=== PATIENT | male | born 1930 | race Caucasian/White ===

== ENCOUNTER 2016-05-24 19:06 | Emergency (ER) | payer OTHER ==
[~2016-05-24] VITALS: Ht 170.2 cm; Wt 76.5 kg
[2016-05-24 21:56] LABS: ADD MIUA? YES; BILIRUBIN NEGATIVE; BLOOD MODERATE; COLOR YELLOW ((YELLOW)); GLUCOSE (STRIP) NEGATIVE; KETONES NEGATIVE; LEUKOCYTES LARGE; NITRITE NEGATIVE; PROTEIN (STRIP) 30; SPECIFIC GRAVITY 1.017 (1.000-1.030)
[2016-05-24 22:13] LABS: BACTERIA 1+ /HPF; EPITHELIAL CELLS RARE /HPF; MUCUS NONE SEEN /LPF; RED BLOOD CELLS 20-30 /HPF (0-5); UCUL ADDED? NO; WHITE BLOOD CELLS 30-40 /HPF (0-5)
[2016-05-24 22:17] VITALS: BP 192/105
== END 2016-05-24 22:18 ==
LOC: EME → EDBD 19:06 → EME 19:06 → EDSEX 19:06 → EME 22:18
PROVIDERS: Emergency Medicine
PROC: 0HQ0XZZ Repair Scalp Skin, External Approach (ICD-10-PCS; principal; 2016-05-24)
DX: S09.90XA Unspecified injury of head, initial encounter (principal); S01.01XA Laceration without foreign body of scalp, initial encounter; W01.10XA Fall on same level from slipping, tripping and stumbling with subsequent striking against unspecified object, initial encounter; Y92.121 Bathroom in nursing home as the place of occurrence of the external cause; J44.9 Chronic obstructive pulmonary disease, unspecified; I10 Essential (primary) hypertension; F03.90 Unspecified dementia, unspecified severity, without behavioral disturbance, psychotic disturbance, mood disturbance, and anxiety; Z87.891 Personal history of nicotine dependence
CPT/HCPCS: 70450; 81003; 99281; 99285

== ENCOUNTER 2016-08-24 12:12 | Inpatient (IN) | payer OTHER ==
[2016-08-24] VITALS (11 sets, daily range): BP systolic 76–120; BP diastolic 48–78
[~2016-08-24] VITALS: Ht 177.8 cm; Wt 79.2 kg
[2016-08-24 14:10] LABS: EOSINOPHIL (%) 0 % (0-5); HEMATOCRIT 38.3 % (38.0-50.0); IMMATURE GRANULOCYTE COUNT 0.3 K/uL; INSTRUMENT ABS NEUTROPHIL CT 20.7 K/uL; LYMPHOCYTE COUNT 2.1 K/uL (1.0-2.8); MCH 29.4 PG (29.0-34.0); MCHC 30.8 G/DL (30.0-36.0); MCV 95.3 FL (86-99); MEAN PLAT.VOLUME 14.7 uM^3 (9.0-12.4); MONOCYTE (%) 5.3 % (3-12); MONOCYTE COUNT 1.3 K/uL (0-0.8); NEUTROPHIL COUNT 20.7 K/uL (1.8-6.4); NRBC (%) 1.2 /100 WBC (0-0); PLATELET COUNT 111 K/uL (156-360); RBC DIS.WIDTH-CV 16.2 % (11.8-14.6); RBC DIS.WIDTH-SD 56.7 % (39-53); RED BLOOD COUNT 4.02 M/uL (4.00-5.50); WHITE BLOOD COUNT 24.3 K/uL (4.1-10.2)
[2016-08-24 14:13] LABS: PROTHROMBIN TIME 27.8 (9.2-11.2); PTT 30.2 (25-32)
[2016-08-24 14:14] LABS: INTER. NORMALIZED RATIO 2.6
[2016-08-24 14:16] LABS: CHLORIDE 122 mEq/L (99-109); POTASSIUM 5.5 mEq/L (3.7-5.4); SODIUM 154 mEq/L (136-147)
[2016-08-24 14:18] LABS: ADD MIUA? YES; BILIRUBIN SMALL; BLOOD SMALL; COLOR AMBER ((YELLOW)); GLUCOSE (STRIP) NEGATIVE; KETONES NEGATIVE; LEUKOCYTES MODERATE; NITRITE NEGATIVE; PROTEIN (STRIP) 30; SPECIFIC GRAVITY 1.016 (1.000-1.030)
[2016-08-24 14:19] LABS: GLUCOSE 194 mg/dL (70-99)
[2016-08-24 14:20] LABS: ANION GAP 12 MEQ/L (2-14)
[2016-08-24 14:21] LABS: TOTAL BILIRUBIN 1.1 mg/dL (0.0-1.0)
[2016-08-24 14:22] LABS: ALKALINE PHOSPHATASE 158 IU/L (3-129)
[2016-08-24 14:23] LABS: GFR ESTIMATE (CALCULATED) 27 mL/min/
[2016-08-24 14:24] LABS: UREA NITROGEN (BUN) 73 mg/dL (9-23)
[2016-08-24 14:27] LABS: BACTERIA RARE /HPF; EPITHELIAL CELLS RARE /HPF; GRANULAR CASTS 15-20 /LPF; HYALINE CASTS 30-40 /LPF; MUCUS TRACE /LPF; RED BLOOD CELLS 0-5 /HPF (0-5); UCUL ADDED? NO
[2016-08-24 14:32] LABS: TROP-I INTERPRETATION POSITIVE; TROPONIN-I 0.68 ng/mL (0.0-0.30)
[2016-08-24] MEDS ORDERED: ATORVASTATIN CA40 MG PO (15:06)
[2016-08-24] MEDS ORDERED: CRANBERRY405 MG PO (15:07)
[2016-08-24] MEDS ORDERED: WELLBUTRIN100 MG PO (15:07)
[2016-08-24] MEDS ORDERED: FINASTERIDE5 MG PO (15:07)
[2016-08-24] MEDS ORDERED: LASIX20 MG PO (15:08)
[2016-08-24] MEDS ORDERED: FLUTICASONE PRO16 GM BOTH NARES (15:08)
[2016-08-24] MEDS ORDERED: CLARITIN,ALAVAR10 MG PO (15:09)
[2016-08-24] MEDS ORDERED: LOSARTAN POTAS100 MG PO (15:10)
[2016-08-24] MEDS ORDERED: OMEPRAZOLE20 MG PO (15:11)
[2016-08-24] MEDS ORDERED: K-DUR20 MEQ PO (15:12)
[2016-08-24] MEDS ORDERED: SENOKOT S,PE1 TABLET PO (15:12)
[2016-08-24] MEDS ORDERED: TAMSULOSIN HCL0.4 MG PO (15:13)
[2016-08-24] MEDS ORDERED: VENLAFAXINE HCL75 M3 PO (15:13)
[2016-08-24] MEDS ORDERED: XARELTO15 MG PO (15:15)
[2016-08-24] MEDS ORDERED: ACETAMINOPHEN325 M1 PO (15:16)
[2016-08-24] MEDS ORDERED: ONDANSETRON HCL4 MG PO (15:16)
[2016-08-24 17:53] LABS: POINT-OF-CARE METER ID UU13113731
[2016-08-24 18:31] LABS: ANION GAP 17 MEQ/L (2-14); CHLORIDE 121 MEQ/L (99-109); POTASSIUM 5.3 MEQ/L (3.7-5.4); SAMPLE HEMOLYSIS CHECK 0; SAMPLE ICTERIC CHECK 0; SAMPLE LIPEMIA CHECK 0; SODIUM 153 MEQ/L (136-147); TOTAL BILIRUBIN 1.4 MG/DL (0.0-1.0)
[2016-08-24 19:02] LABS: EOSINOPHIL (%) 0 % (0-5); HEMATOCRIT 38.3 % (38.0-50.0); IMMATURE GRANULOCYTE (%) 1.2 % (0.0-0.7); IMMATURE GRANULOCYTE COUNT 0.3 K/uL; INSTRUMENT ABS NEUTROPHIL CT 22.8 K/uL; MCH 29.9 PG (29.0-34.0); MCHC 30.5 G/DL (30.0-36.0); MEAN PLAT.VOLUME 14.9 uM^3 (9.0-12.4); MONOCYTE COUNT 1.3 K/uL (0-0.8); NEUTROPHIL COUNT 22.8 K/uL (1.8-6.4); NRBC (%) 1.2 /100 WBC (0-0); PLATELET COUNT 112 K/uL (156-360); RBC DIS.WIDTH-CV 16.5 % (11.8-14.6); RBC DIS.WIDTH-SD 58.4 % (39-53); RED BLOOD COUNT 3.91 M/uL (4.00-5.50); WHITE BLOOD COUNT 26.5 K/uL (4.1-10.2)
[2016-08-24 19:11] LABS: CREATINE KINASE 1794 IU/L (1-294)
[2016-08-24 19:27] LABS: METH RESISTANT S AUREUS PCR NEGATIVE (NEGATIVE)
[2016-08-24 19:29] LABS: PROBE CHECK PASS; SPECIMEN PROCESSING CONTROL PASS
[2016-08-24 19:47] LABS: ALKALINE PHOSPHATASE 160 IU/L (3-129); GFR ESTIMATE (CALCULATED) 34 mL/min/; GLUCOSE 192 mg/dL (70-99); UREA NITROGEN (BUN) 70 mg/dL (9-23)
[2016-08-24 20:07] LABS: TROP-I INTERPRETATION POSITIVE; TROPONIN-I 0.76 ng/mL (0.0-0.30)
[2016-08-24 20:52] LABS: CREATINE KINASE 1420 IU/L (1-294); TOTAL CK 1420 IU/L (1-294)
[2016-08-24 21:23] LABS: CK-MB 8.4 ng/mL (0.0-4.9)
[2016-08-24 21:56] LABS: CARBOXY HGB 1.8 % (0-5); COMMENTS - BLOOD GASES VBG RN DRAW; DEVICE NC; METHEMOGLOBIN 1.8 % (0-1.5); O2 FLOW 2 L/MIN; PCO2 < 19 mm Hg (35-45); SITE CENTRAL LINE; pH 7.34 (7.35-7.45)
[2016-08-24 21:57] LABS: PO2 < 28 mm Hg (80-100)
[2016-08-25] VITALS (14 sets, daily range): BP systolic 83–114; BP diastolic 55–75
[2016-08-25 00:52] LABS: POINT-OF-CARE METER ID UU13113731
[2016-08-25 02:53] LABS: EOSINOPHIL (%) 0 % (0-5); HEMATOCRIT 35.6 % (38.0-50.0); IMMATURE GRANULOCYTE (%) 1.2 % (0.0-0.7); IMMATURE GRANULOCYTE COUNT 0.3 K/uL; INSTRUMENT ABS NEUTROPHIL CT 22.6 K/uL; LYMPHOCYTE COUNT 2.2 K/uL (1.0-2.8); MCH 28.6 PG (29.0-34.0); MCHC 29.8 G/DL (30.0-36.0); MCV 96.2 FL (86-99); MEAN PLAT.VOLUME 14.9 uM^3 (9.0-12.4); MONOCYTE (%) 4.5 % (3-12); MONOCYTE COUNT 1.2 K/uL (0-0.8); NEUTROPHIL (%) 85.8 % (45-76); NEUTROPHIL COUNT 22.6 K/uL (1.8-6.4); NRBC (%) 1.3 /100 WBC (0-0); PLATELET COUNT 86 K/uL (156-360); RBC DIS.WIDTH-CV 16.3 % (11.8-14.6); RBC DIS.WIDTH-SD 57.5 % (39-53); WHITE BLOOD COUNT 26.4 K/uL (4.1-10.2)
[2016-08-25 03:05] LABS: CHLORIDE 123 mEq/L (99-109); POTASSIUM 5.4 mEq/L (3.7-5.4); SODIUM 152 mEq/L (136-147)
[2016-08-25 03:06] LABS: MAGNESIUM 2.2 mg/dL (1.3-2.7)
[2016-08-25 03:08] LABS: GLUCOSE 185 mg/dL (70-99)
[2016-08-25 03:09] LABS: ANION GAP 9 MEQ/L (2-14); TOTAL BILIRUBIN 1.3 mg/dL (0.0-1.0)
[2016-08-25 03:11] LABS: ALKALINE PHOSPHATASE 154 IU/L (3-129); GFR ESTIMATE (CALCULATED) 27 mL/min/
[2016-08-25 03:12] LABS: TOTAL CK 2649 IU/L (1-294); UREA NITROGEN (BUN) 81 mg/dL (9-23)
[2016-08-25 03:13] LABS: DIRECT BILIRUBIN 0.8 mg/dL (0.0-0.3)
[2016-08-25 03:20] LABS: CK-MB 9.7 ng/mL (0.0-4.9)
[2016-08-25 03:24] LABS: CREATINE KINASE 2649 IU/L (1-294); TROP-I INTERPRETATION POSITIVE; TROPONIN-I 0.98 ng/mL (0.0-0.30)
[2016-08-26 05:43] VITALS: BP 00/00
== END 2016-08-26 16:00 | DRG 872 ==
LOC: EME 12:12 → 4WEST 15:58 → EDOF 15:58 → 5EAST 15:58 → 4WEST 17:10 → 5EAST 08-25 19:07
PROVIDERS: Emergency Medicine; Internal Medicine Nephrology
DX: A41.9 Sepsis, unspecified organism (principal); N39.0 Urinary tract infection, site not specified; A04.7 Enterocolitis due to Clostridium difficile; N17.9 Acute kidney failure, unspecified; E87.0 Hyperosmolality and hypernatremia; E87.2 Acidosis; I82.512 Chronic embolism and thrombosis of left femoral vein; I82.532 Chronic embolism and thrombosis of left popliteal vein; I82.5Z2 Chronic embolism and thrombosis of unspecified deep veins of left distal lower extremity; I77.89 Other specified disorders of arteries and arterioles; F03.90 Unspecified dementia, unspecified severity, without behavioral disturbance, psychotic disturbance, mood disturbance, and anxiety; I10 Essential (primary) hypertension; I48.2 Chronic atrial fibrillation; J44.9 Chronic obstructive pulmonary disease, unspecified; R63.0 Anorexia; Z51.5 Encounter for palliative care; Z66 Do not resuscitate; Z86.718 Personal history of other venous thrombosis and embolism; Z86.73 Personal history of transient ischemic attack (TIA), and cerebral infarction without residual deficits; Z87.891 Personal history of nicotine dependence; Z91.81 History of falling; Z88.0 Allergy status to penicillin
CPT/HCPCS: 36415; 36600; 70450; 71010; 76705; 80048; 80053; 80076; 81003; 82550; 82550 91; 82553; 82803; 82948; 83605; 83735; 84100; 84484; 85025; 85025 91; 85610; 85730; 87040; 87086; 87641; 93005; 93926; 94799; 99202; 99281; 99285; J0692; J1160; J1815; J2060; J2270; J3010; J3370; J7030; J7050; J7070; P9045; S0030